=== PATIENT | male | born 2000 | race African-American/Black ===

== ENCOUNTER 2021-10-16 14:09 | Emergency (ER) | payer OTHER ==
[~2021-10-16] VITALS: Ht 170.2 cm; Wt 95.0 kg
[~2021-10-16 14:09] MED LIST: AMOXICILLIN500 MG PO; NO HOME MEDS; TYLENOL & COD12.5 ML OR
[2021-10-16] MEDS ORDERED: CLEOCIN300 MG PO (15:03)
[2021-10-16] MEDS ORDERED: TRAMADOL HYDROC50 M1 PO (15:03)
[2021-10-16 15:35] VITALS: BP 145/89
== END 2021-10-16 15:35 | disposition home or self-care (01) | DRG 159 ==
LOC: ED 14:09
DX: K03.81 Cracked tooth (principal)

== ENCOUNTER 2023-02-09 23:40 | Inpatient (IN) | payer SELFPAY ==
[~2023-02-09] VITALS: Ht 170.2 cm; Wt 80.6 kg
[~2023-02-09 23:40] MED LIST changes: +CLEOCIN300 MG PO; +TRAMADOL HYDROC50 M1 PO
--- NOTE | 2023-02-09 23:40 | NUR ---
PT AMBULATED TO ROOM 14 WITH A STEADY GAIT HOWEVER PT IS GAURDING HIS STOMACH
[2023-02-10] VITALS (18 sets, daily range): BP systolic 120–150; BP diastolic 69–104
--- NOTE | 2023-02-10 00:45 | NUR ---
PT IN ROOM C/O PAIN, PT HAD VOMIT TWICE WHILE NURSE IN ROOM. IV STARTED AND BLODD HAS BEEN COLLECTED AND SENT TO LAB.
[2023-02-10 00:59] LABS: BASO% 0.5 % (0-3); EOS% 0.1 % (0-8); HEMATOCRIT 44.7 % (39.0-50.0); HEMOGLOBIN 15.5 g/dl (14.0-18.0); IMMATURE GRANULOCYTES 0.2 % (0.0-5.0); LYMPH% 9.1 % (15-41); MEAN CELL VOLUME 90.3 fL CALC (80.0-100.0); MEAN CORPUSCULAR HGB 31.3 pG CALC (26.0-32.0); MEAN CORPUSCULAR HGB CONC 34.7 g/dL CAL (32.0-36.0); MONO% 7.2 % (2-13); NEUT# 7.12 thou/uL (1.82-7.42); NEUT% 82.9 % (42-76); RED BLOOD COUNT 4.95 mill/uL (4.70-6.10); RED CELL DISTRI WIDTH 11.8 % (11.5-15.5)
[2023-02-10 01:13] LABS: ALBUMIN 5.1 g/dL (3.2-5.0); ALKALINE PHOSPHATASE 97 u/l (38-126); AMYLASE 112 u/l (30-110); ANION GAP 19 (6-22 (CALC)); BILIRUBIN, TOTAL 2.8 mg/dL (0.2-1.3); BUN 18 mg/dL (9-20); BUN/CREATININE RATIO 18 (12-20 (CALC)); CARBON DIOXIDE 23 mmol/l (22-30); CHLORIDE 99 mmol/l (95-108); GFR FOR AFR.AMER. > 60 ML/MIN (>=60 (CALC)); GFR OTHER RACES > 60 ML/MIN (>=60 (CALC)); LIPASE 819 u/l (23-300); SGOT/AST 75 u/l (17-59); SODIUM 137 mmol/l (137-146); TOTAL PROTEIN 8.5 g/dL (6.3-8.2)
[2023-02-10 01:16] LABS: POTASSIUM 3.6 mmol/l (3.5-5.1)
--- NOTE | 2023-02-10 01:45 | NUR ---
PT IN ROOM RESTING, PARENTS IN ROOM AT BEDSIDE WITH PATIENT. NAD, NO CONCERNS AT THIS TIME
--- NOTE | 2023-02-10 02:40 | NUR ---
PT IN ROOM RESTING WITH EYES CLOSED. VSS, NAD. PARENTS ARE STILL IN ROOM WITH PATIENT
--- NOTE | 2023-02-10 03:45 | NUR ---
PT IN ROOM AWAKE. PT ASKED FOR SOMETHING TO DRINK AND THAT WAS PROVIDED TO PT. PARENT HAD NO QUESTION, PT REPORTED HE HAS NO CONCERNS AT THIS
--- NOTE | 2023-02-10 04:21 | NUR ---
REPORT CALLED UP TO NURSE DOWNEY. PT IS BEING ADMITTED TO ROOM 266
--- NOTE | 2023-02-10 04:45 | NUR ---
PT TO FLOOR VIA STRETCHER. NAD. PT ABLE TO ABULATE UNTO THE BED WITHOUT ANY ISSUES.
--- NOTE | 2023-02-10 05:27 | NUR ---
RECEIVED REPORT FROM ED NURSE MARIA VICTORIA, PATIENT TRANSPORTED VIA BED ARRIVED TO FLOOR AT 0455, PATIENT ALERT ORIENTED X 3, ABLE TO MAKE NEEDS KNOWN, ONGOING LEVOFLOXACIN INFUSION. ADMISSION ASSESSMENT COMPLETED, PATIENT EDUCATED ON FULL LIQUID DIET, PATINET STILL C/O PAIN ON UMBILICAL AREA BUT MORE TOLERABLE, CALL LIGHT IN REACH.
--- NOTE | 2023-02-10 07:28 | NUR ---
RECIEVED REPORT FROM PM RN. PT RESTING IN BED, ALL SAFETY MEASURES IN PLACE. NO NEEDS AT THIS TIME.
--- NOTE | 2023-02-10 19:26 | NUR ---
received patient in bed resting with his parents on the bed side. no s/s of distress noted. c/o pain on his abdomen scale of 1 to 10 state 7. cont. to monitor.
[2023-02-11 04:00] VITALS: BP 151/94
[2023-02-11 04:20] VITALS: BP 151/94
[2023-02-11 05:38] LABS: URINE BILIRUBIN - DIPSTICK NEGATIVE (NEGATIVE); URINE BLOOD DIPSTICK NEGATIVE (NEGATIVE); URINE COLOR YELLOW; URINE GLUCOSE - DIPSTICK NEGATIVE (NEGATIVE); URINE KETONE 40 mg/dL (NEGATIVE); URINE LEUK ESTERASE NEGATIVE (NEGATIVE); URINE PROTEIN - DIPSTICK TRACE mg/dL (NEG-TRACE); URINE SPECIFIC GRAVITY >=1.030; URINE UROBILINOGEN - DIPSTICK 0.2 E.U./dL (0.2)
[2023-02-11 06:02] LABS: URINE NITRITE - DIPSTICK NEGATIVE (Negative)
[2023-02-11 06:03] LABS: ALKALINE PHOSPHATASE 64 u/l (38-126); AMYLASE 172 u/l (30-110); ANION GAP 13 (6-22 (CALC)); BILIRUBIN, TOTAL 2.1 mg/dL (0.2-1.3); BUN 8 mg/dL (9-20); BUN/CREATININE RATIO 10 (12-20 (CALC)); CARBON DIOXIDE 24 mmol/l (22-30); CHLORIDE 100 mmol/l (95-108); CREATININE 0.9 mg/dL (0.7-1.3); GFR FOR AFR.AMER. > 60 ML/MIN (>=60 (CALC)); GFR OTHER RACES > 60 ML/MIN (>=60 (CALC)); LIPASE 1171 u/l (23-300); POTASSIUM 3.8 mmol/l (3.5-5.1); SGOT/AST 39 u/l (17-59); SODIUM 134 mmol/l (137-146)
[2023-02-11 06:15] LABS: ALBUMIN 3.7 g/dL (3.2-5.0); TOTAL PROTEIN 6.4 g/dL (6.3-8.2)
[2023-02-11 06:31] VITALS: BP 131/87
--- NOTE | 2023-02-11 07:00 | NUR ---
SHIFT CHANGE REPORT, PT SLEEPING BUT AAKENS TO VERBAL STIMULI, ORIENTED, C/O ABD PAIN, IVF INFUSING, CALL PRITCHETT IN REACH AND BED LOCKED IN LOWEST POSITION.
--- NOTE | 2023-02-11 12:00 | NUR ---
CONDITION STABLE, PAIN CONTROLLED.
[2023-02-11 14:48] VITALS: BP 128/83
--- NOTE | 2023-02-11 16:04 | NUR ---
RESTING, NO NEW COMPLAINS.
--- NOTE | 2023-02-11 19:59 | NUR ---
SBAR RECEIVED FROM JOSE L MARKHAM. PATIENT AWAKE IN BED, VISITORS AT BEDSIDE. CALL LIGHT WITHIN REACH.
[2023-02-11 20:00] VITALS: BP 139/81
--- NOTE | 2023-02-11 20:57 | NUR ---
PATIENT RESTING IN BED WATCHING TV. FAMILY AT BEDSIDE. ASSESSMENT COMPLETE. PATIENT VERBALIZES PAIN IS 4/10 AFTER RECEIVING LORTAB; MED EFFECTIVE. PATIENT INFORMED THAT STOOL SPECIMEN IS NEEDED. COLLECTION HAT PLACED IN COMMODE, VERBALIZES UNDERSTANDING. NO FURTHER CONCERNS EXPRESSED. CALL LIGHT WITHIN REACH.
--- NOTE | 2023-02-12 00:58 | NUR ---
PATIENT AWAKE IN BED PLAYING ON PHONE. NO DISTRESS NOTED. NO CONCERNS EXPRESSED. CALL LIGHT WITHIN REACH.
[2023-02-12 04:17] VITALS: BP 135/77
--- NOTE | 2023-02-12 04:44 | NUR ---
PATIENT AWAKE WATCHING TV. NO DISTRESS NOTED, CALL LIGHT WITHIN REACH.
[2023-02-12 06:00] LABS: MEAN CELL VOLUME 92.3 fL CALC (80.0-100.0); MEAN CORPUSCULAR HGB 31.8 pG CALC (26.0-32.0); MEAN CORPUSCULAR HGB CONC 34.4 g/dL CAL (32.0-36.0); RED BLOOD COUNT 3.9 mill/uL (4.70-6.10); RED CELL DISTRI WIDTH 11.8 % (11.5-15.5)
[2023-02-12 06:13] LABS: ALBUMIN 3.4 g/dL (3.2-5.0); ALKALINE PHOSPHATASE 64 u/l (38-126); AMYLASE 102 u/l (30-110); ANION GAP 10 (6-22 (CALC)); BILIRUBIN, TOTAL 1.4 mg/dL (0.2-1.3); BUN 3 mg/dL (9-20); BUN/CREATININE RATIO 4 (12-20 (CALC)); CARBON DIOXIDE 26 mmol/l (22-30); CHLORIDE 97 mmol/l (95-108); CREATININE 0.8 mg/dL (0.7-1.3); GFR FOR AFR.AMER. > 60 ML/MIN (>=60 (CALC)); GFR OTHER RACES > 60 ML/MIN (>=60 (CALC)); LIPASE 445 u/l (23-300); MAGNESIUM 1.6 mg/dL (1.6-2.3); POTASSIUM 3.2 mmol/l (3.5-5.1); SGOT/AST 41 u/l (17-59); SODIUM 130 mmol/l (137-146); TOTAL PROTEIN 6.1 g/dL (6.3-8.2)
[2023-02-12 06:31] VITALS: BP 124/71
[2023-02-12 06:34] LABS: HEMOGLOBIN 12.4 g/dl (14.0-18.0)
[2023-02-12] MEDS ORDERED: METRONIDAZOLE500 MG PO (11:21)
[2023-02-12] MEDS ORDERED: LORTAB5 PO (11:21)
[2023-02-12] MEDS ORDERED: LEVOFLOXACIN500MG PO (11:21)
--- NOTE | 2023-02-12 11:36 | NUR ---
PT BEING DISHCHARGED TO HOME.BOOT FOR ANKLE ASSIGNED TO PT.IV BEING DISCHARGED.
== END 2023-02-12 12:30 | disposition home or self-care (01) | DRG 440 ==
LOC: ED 23:40 → ED-I 02-10 03:35 → ED 02-10 04:08 → MS2 02-10 04:09
PROVIDERS: Emergency Medicine; ADMIT Internal Medicine; ATTEND Internal Medicine
DX: K85.20 Alcohol induced acute pancreatitis without necrosis or infection (principal); K52.9 Noninfective gastroenteritis and colitis, unspecified; S82.62XA Displaced fracture of lateral malleolus of left fibula, initial encounter for closed fracture; F10.90 Alcohol use, unspecified, uncomplicated; F17.290 Nicotine dependence, other tobacco product, uncomplicated; V87.8XXA Person injured in other specified noncollision transport accidents involving motor vehicle (traffic), initial encounter; Y90.0 Blood alcohol level of less than 20 mg/100 ml; Z20.822 Contact with and (suspected) exposure to COVID-19
CPT/HCPCS: J1650; J1956; Q9967